=== PATIENT | male | born 1945 | race Caucasian/White ===

== ENCOUNTER 2022-03-14 12:25 | Day surgery (SDC) | payer MEDICARE, BC ==
[2022-03-10 15:35] LABS: MONOCYTES # (AUTO) 0.6 X10'3 (0-0.9)
[2022-03-10 15:36] LABS: BASOPHILS % (AUTO) 0.3 % (0-1); EOSINOPHILS % (AUTO) 0.7 % (0-6); HEMATOCRIT 41.3 % (42.0-52.0); LYMPHOCYTES # (AUTO) 2.8 X10'3 (1.1-4.8); LYMPHOCYTES % (AUTO) 48.6 % (21-51); MEAN CORPUSCULAR VOLUME 88.3 FL (78-98); MEAN PLATELET VOLUME 9.1 FL (7.4-10.4); MONOCYTES % (AUTO) 9.6 % (2-12); NEUTROPHILS # (AUTO) 2.4 X10'3 (1.8-7.7); NEUTROPHILS % (AUTO) 40.8 % (42-75); PLATELET COUNT 120 X10'3 (140-440); RED BLOOD COUNT 4.67 X10'6 (4.70-6.10); WHITE BLOOD COUNT 5.8 X10'3 (4.5-11.0)
[2022-03-10 15:46] LABS: APTT 36 SECONDS (22-32)
[2022-03-10 15:50] LABS: ALBUMIN 3.6 G/DL (3.4-5.0); ANION GAP 5 (8-16); BLOOD UREA NITROGEN 17 MG/DL (7-18); BUN/CREATININE RATIO 14.5 (5.4-32.0); CALCIUM 8.6 MG/DL (8.5-10.1); CHLORIDE 103 MMOL/L (99-107); CREATININE 1.17 MG/DL (0.60-1.10); GLUCOSE 126 MG/DL (70-104); POTASSIUM 4.3 MMOL/L (3.5-5.1); SODIUM 139 MMOL/L (135-145); TOTAL CARBON DIOXIDE 30.7 MMOL/L (24-32); eGFR 61 ML/MIN
[2022-03-10 18:41] LABS: PLATELET ESTIMATE DECREASED; SMUDGE CELLS 2+; TOTAL CELLS COUNTED 100
[2022-03-14] VITALS (8 sets, daily range): BP systolic 123–157; BP diastolic 62–70
[~2022-03-14] VITALS: Ht 185.4 cm; Wt 87.7 kg
[2022-03-14] MEDS ORDERED: LORazepam 0.5 MG tablet PO PRN (12:40)
[2022-03-14] MEDS ORDERED: normal saline 1,000 ML IV SCH (12:40)
[2022-03-14] MEDS ORDERED: diphenhydrAMINE 25mg capsule PO PRN (12:40)
[2022-03-14] MEDS ORDERED: PANT40TA54 PO (13:45)
[2022-03-14] MEDS ORDERED: ASPI81TA52 PO (13:45)
[2022-03-14] MEDS ORDERED: IRBE150T24 PO (13:45)
[2022-03-14] MEDS ORDERED: midazolam 1 mg/ML 2ml injection ONE ×2 (14:22→14:59)
[2022-03-14] MEDS ORDERED: LIDOcaine 1% (10mg/ml) 2ml vial ONE (14:22)
[2022-03-14] MEDS ORDERED: verapamil 2.5 mg/ml inj IV ONE (14:22)
[2022-03-14] MEDS ORDERED: FENTANYL CITRATE/PF 50 MCG/1 ML VIAL ONE (14:22)
[2022-03-14] MEDS ORDERED: nitroGLYCERIN-Tridil 50MG/D5W 250 ML IV ONE (14:22)
[2022-03-14] MEDS ORDERED: heparin 1,000unit/ml 10ml vial 10 ML ONE (14:22)
[2022-03-14] MEDS ORDERED: iohexol 350MG/ML 100ml bottle IV ONE (14:23)
[2022-03-14] MEDS ORDERED: LIDOcaine 1% 30ml preserv. free vial ONE (14:29)
[2022-03-14 15:26] LABS: ISTAT HGB ART 11.2 g/dl (14.0-17.9); ISTAT Hct ART 33 %PCV (42-52); ISTAT O2 SATURATION ARTERIAL 95 % (95-98); ISTAT SOURCE ART
[2022-03-14] MEDS ORDERED: HYDROcodone/acetaminophen 10/325mg tab PO PRN (15:50)
[2022-03-14] MEDS ORDERED: HYDROcodone/acetaminophen 5mg/325mg tablet PO PRN (15:50)
[2022-03-15 06:14] LABS: ISTAT Hct MIX 35 %PCV (42-52); ISTAT O2 SATURATION MIX VENOUS 64 % (60-80); ISTAT SOURCE VEN
== END 2022-03-14 18:11 | disposition home or self-care (01) ==
LOC: SSTAY O 12:25
PROVIDERS: ATTEND Student in an Organized Health Care Education/Training Program
DX: I35.0 Nonrheumatic aortic (valve) stenosis (principal); I25.10 Atherosclerotic heart disease of native coronary artery without angina pectoris; I10 Essential (primary) hypertension; Z79.82 Long term (current) use of aspirin; Z79.899 Other long term (current) drug therapy; Z85.46 Personal history of malignant neoplasm of prostate; Z96.653 Presence of artificial knee joint, bilateral; Z98.890 Other specified postprocedural states; Z79.01 Long term (current) use of anticoagulants
CPT/HCPCS: 36415; 80048; 82803; 85014; 85025; 85610; 85730; 93005; 93456; 99152; 99153; C1769; C1894; J1644; J2250; J3010; J3490; J7030; Q0163; Q9967; 85007; 93460; A6258; A6402

== ENCOUNTER 2022-04-19 11:22 | Outpatient (CLI) | payer MEDICARE, BC ==
[~2022-04-19 11:22] MED LIST: ASPI81TA52 PO; IRBE150T24 PO; PANT40TA54 PO
[2022-04-19 11:56] LABS: BASOPHILS % (AUTO) 0.6 % (0-1); EOSINOPHILS # (AUTO) 0.1 X10'3 (0-0.9); EOSINOPHILS % (AUTO) 0.9 % (0-6); HEMOGLOBIN 13.3 g/dl (14.0-17.9); LYMPHOCYTES # (AUTO) 4.2 X10'3 (1.1-4.8); MEAN CORPUSCULAR HEMOGLOBIN 29.6 PG (27.0-31.0); MEAN CORPUSCULAR HGB CONC 33.3 g/dL (33.0-36.5); MEAN CORPUSCULAR VOLUME 88.9 FL (78-98); NEUTROPHILS # (AUTO) 3.2 X10'3 (1.8-7.7)
[2022-04-19 11:58] LABS: HEMATOCRIT 39.9 % (42.0-52.0); MEAN PLATELET VOLUME 9.5 FL (7.4-10.4); MONOCYTES # (AUTO) 0.5 X10'3 (0-0.9); MONOCYTES % (AUTO) 6.6 % (2-12); NEUTROPHILS % (AUTO) 39.9 % (42-75); PLATELET COUNT 135 X10'3 (140-440); RED BLOOD COUNT 4.49 X10'6 (4.70-6.10); RED CELL DISTRIBUTION WIDTH 15.3 % (11.5-14.5)
[2022-04-19 12:03] LABS: APTT 35 SECONDS (22-32)
[2022-04-19 12:04] LABS: ALANINE AMINOTRANSFERASE 24 U/L (12-78); ALBUMIN 3.7 G/DL (3.4-5.0); ALBUMIN/GLOBULIN RATIO 1.2 (1.1-1.5); ALKALINE PHOSPHATASE 66 IU/L (46-116); ANION GAP 6 (8-16); ASPARTATE AMINO TRANSFERASE 23 U/L (10-37); BILIRUBIN,TOTAL 0.6 MG/DL (0.1-1.0); BLOOD UREA NITROGEN 18 MG/DL (7-18); BUN/CREATININE RATIO 17.6 (5.4-32.0); CALCIUM 8.9 MG/DL (8.5-10.1); CHLORIDE 104 MMOL/L (99-107); CREATININE 1.02 MG/DL (0.60-1.10); GLUCOSE 88 MG/DL (70-104); POTASSIUM 4.3 MMOL/L (3.5-5.1); SODIUM 141 MMOL/L (135-145); TOTAL CARBON DIOXIDE 31.1 MMOL/L (24-32); TOTAL PROTEIN 6.9 G/DL (6.4-8.2); eGFR 71 ML/MIN
[2022-04-19] MEDS ORDERED: IODIXANOL 320 MG/ML INFUS..BTL 100ML IV ONE (12:13)
[2022-04-19 16:18] LABS: PLATELET ESTIMATE DECREASED; TOTAL CELLS COUNTED 100
[2022-04-19 16:19] LABS: SMUDGE CELLS 2+
== END 2022-04-19 23:59 | disposition home or self-care (01) ==
LOC: RAD 11:22
PROVIDERS: ATTEND Internal Medicine Cardiovascular Disease
DX: I51.7 Cardiomegaly (principal); N40.0 Benign prostatic hyperplasia without lower urinary tract symptoms; I65.29 Occlusion and stenosis of unspecified carotid artery; I35.0 Nonrheumatic aortic (valve) stenosis; R06.02 Shortness of breath; I70.0 Atherosclerosis of aorta; I25.10 Atherosclerotic heart disease of native coronary artery without angina pectoris
CPT/HCPCS: 71046; 71275; 74174; 80053; 85007; 85025; 85610; 85730; 94010; 94727; 94729; J3490; Q9967